=== PATIENT | female | born 1965 | race Two or more races ===

== ENCOUNTER 2024-01-20 13:45 | Emergency (ER) | payer MEDICARE, MEDICAID ==
[~2024-01-20] VITALS: Ht 162.6 cm; Wt 54.0 kg
[2024-01-20 13:56] VITALS: O2SAT 97
[2024-01-20] MEDS: PHENYTOIN SODIUM EXTENDED 100MG CAPSULE PO ONE (14:45)
[2024-01-20 14:47] VITALS: TEMP 97.9
[2024-01-20 15:07] LABS: BASOPHILS % 0.5 % (0.0-2.0); EOSINOPHILS % 0.4 % (0.0-5.0); HEMATOCRIT. 37.9 % (36.0-48.0); HEMOGLOBIN. 13.2 g/dL (12.0-16.0); LYMPHOCYTES % 29.6 % (20.0-50.0); MEAN CORPUSCULAR HEMOGLOBIN 32.8 pg (28.0-32.0); MEAN CORPUSCULAR HGB CONC 34.9 g/dL (31.0-37.0); MEAN CORPUSCULAR VOLUME 93.9 fL (81.0-99.0); MEAN PLATELET VOLUME 6.6 fl (7.4-10.4); MONOCYTES % 5.8 % (2.0-8.0); NEUTROPHILS % 63.7 % (40.0-76.0); PLATELET 275 x1000/uL (130-400); RED BLOOD CELL COUNT 4.03 mill/uL (4.2-5.4); RED CELL DISTRIBUTION WIDTH 12.6 % (11.6-14.6); WHITE BLOOD COUNT 4.7 x1000/uL (4.5-11.0)
[2024-01-20 15:14] LABS: PROTHROMBIN TIME 10.9 sec (9.6-11.0)
[2024-01-20] MEDS: ONDANSETRON HCL 4MG/2ML INJ IV STA (15:14)
[2024-01-20] MEDS: SODIUM CHLORIDE 0.9% 1,000 ML IV ONE (15:14)
[2024-01-20] MEDS: KETOROLAC 30MG/ML VIAL IV STA (15:14)
[2024-01-20 15:20] LABS: ALANINE AMINOTRANSFERASE 18 IU/L (10-49); ASPARTATE AMINOTRANSFERASE 25 IU/L (<34); BILIRUBIN TOTAL 0.3 mg/dL (0.1-1.0); CALCIUM 8.6 mg/dL (8.7-10.4); CARBON DIOXIDE 30 mEq/L (21-32); CHLORIDE 99 mEq/L (98-107); CREATININE 0.5 mg/dL (0.6-1.0); GLUCOSE 91 mg/dL (70-105); POTASSIUM 3.7 mEq/L (3.5-5.1); PROTEIN TOTAL 6.9 g/dL (6.0-8.3); SODIUM 134 mEq/L (136-145); TROPONIN I HIGH SENSITIVITY 5 ng/L (3.0-34); UREA NITROGEN BLOOD 5 mg/dL (9-23)
[2024-01-20 15:32] LABS: ETHANOL BLOOD < 10 mg/dL (<10)
[2024-01-20] MEDS ORDERED: LORAZEPAM 1MG TABLET PO ONE (18:45)
[2024-01-20 18:50] LABS: CLARITY URINE CLEAR (CLEAR); COLOR URINE YELLOW (YELLOW); GLUCOSE URINE NEGATIVE (NEGATIVE); KETONES URINE NEGATIVE (NEGATIVE); LEUKOCYTE ESTERASE URINE NEGATIVE (NEGATIVE); NITRITE URINE NEGATIVE (NEGATIVE); OCCULT BLOOD URINE NEGATIVE (NEGATIVE); PROTEIN URINE NEGATIVE (NEGATIVE); SPECIFIC GRAVITY URINE 1.004 (1.005-1.030); UROBILINOGEN URINE 0.2 E.U./dL (0.2-1.0)
[2024-01-20 19:11] LABS: *AMPHETAMINES SCREEN URINE NEGATIVE (NEGATIVE); *BARBITURATES SCREEN URINE NEGATIVE (NEGATIVE); *BENZODIAZEPINES SCREEN URINE NEGATIVE (NEGATIVE); *COCAINE SCREEN URINE NEGATIVE (NEGATIVE); CANNABINOID URINE SCREEN NEGATIVE (NEGATIVE); ECSTASY MDMA SCREEN URINE NEGATIVE (NEGATIVE); METHADONE URINE SCREEN Neg (NEGATIVE); OPIATES URINE SCREEN NEGATIVE (NEGATIVE); PHENCYCLIDINE URINE SCREEN NEGATIVE (NEGATIVE)
[2024-01-20] MEDS: CLONAZEPAM 1MG TABLET PO ONE (19:15)
[2024-01-20] MEDS: CYCLOBENZAPRINE 10MG TABLET PO ONE (19:28)
[2024-01-20 19:30] VITALS: BP 128/82; PULSE 81; RESP 22
== END 2024-01-20 19:30 | disposition home or self-care (01) ==
LOC: ER 13:45
DX: R10.30 Lower abdominal pain, unspecified (principal); Z86.59 Personal history of other mental and behavioral disorders
CPT/HCPCS: 80053; 80305; 81003; 80320; 83605; 83690; 85025; 85610; 86850; 86900; 86901; 84484; 36415; 71045; 74176; 93970; 93005; 96374; 96375; 99285; J1885; J2405; J7030; G0480

== ENCOUNTER 2024-02-02 15:17 | Emergency (ER) | payer MEDICARE, MEDICAID ==
[~2024-02-02] VITALS: Ht 162.6 cm; Wt 44.0 kg
[2024-02-02 15:19] VITALS: O2SAT 99
[2024-02-02] MEDS: ACETAMINOPHEN 325MG TABLET PO ONE (17:00)
[2024-02-02] MEDS: TETANUS, DIPHTHERIA, PERTUSSIS VAC/PF 0.5ML (>10YR OLD) IM ONE (18:15)
[2024-02-02 19:05] VITALS: BP 134/65; PULSE 93; RESP 16; TEMP 98.7
[2024-02-02] MEDS: LIDOCAINE HCL 1% 20ML VIAL (Pyxis) INJ INFIL ONE (19:14)
== END 2024-02-02 19:05 | disposition home or self-care (01) ==
LOC: ER 15:17
DX: R56.9 Unspecified convulsions (principal); F41.9 Anxiety disorder, unspecified; F20.9 Schizophrenia, unspecified
CPT/HCPCS: 99285; 70450; 72125; 90715; 90471; J3490

== ENCOUNTER → 2025-01-20 | Outpatient (CLI) | payer MEDICARE, MEDICAID ==
[~2025-01-20] MED LIST: GABA-1180 MT
== END | disposition home or self-care (01) ==
LOC: US 07:40
PROVIDERS: ATTEND Internal Medicine Critical Care Medicine
DX: K80.20 Calculus of gallbladder without cholecystitis without obstruction (principal)
CPT/HCPCS: 76705

== ENCOUNTER 2025-03-05 13:41 | Emergency (ER) | payer MEDICARE, MEDICAID ==
[~2025-03-05] VITALS: Ht 170.2 cm; Wt 56.0 kg
[2025-03-05 13:46] VITALS: O2SAT 98
[2025-03-05 14:16] LABS: BASOPHILS % 0.8 % (0.0-2.0); EOSINOPHILS % 1.1 % (0.0-5.0); HEMOGLOBIN. 13.5 g/dL (12.0-16.0); MEAN CORPUSCULAR HEMOGLOBIN 33.1 pg (28.0-32.0); MEAN CORPUSCULAR HGB CONC 35.6 g/dL (31.0-37.0); MEAN CORPUSCULAR VOLUME 92.9 fL (81.0-99.0); MEAN PLATELET VOLUME 6.9 fl (7.4-10.4); MONOCYTES % 8.3 % (2.0-8.0); NEUTROPHILS % 50.8 % (40.0-76.0); PLATELET 261 x1000/uL (130-400); RED BLOOD CELL COUNT 4.09 mill/uL (4.2-5.4); RED CELL DISTRIBUTION WIDTH 12.8 % (11.6-14.6); WHITE BLOOD COUNT 4.4 x1000/uL (4.5-11.0)
[2025-03-05 14:22] LABS: CHLORIDE 104 mEq/L (98-107); POTASSIUM 3.5 mEq/L (3.5-5.1); SODIUM 139 mEq/L (136-145)
[2025-03-05 14:23] LABS: CARBON DIOXIDE 32 mEq/L (21-32)
[2025-03-05 14:28] LABS: CREATININE 0.7 mg/dL (0.6-1.0); GLUCOSE 103 mg/dL (70-105)
[2025-03-05 14:29] LABS: UREA NITROGEN BLOOD < 5 mg/dL (9-23)
[2025-03-05 14:30] LABS: ALANINE AMINOTRANSFERASE 17 IU/L (10-49); ALBUMIN 4.1 g/dL (3.2-4.8); ASPARTATE AMINOTRANSFERASE 22 IU/L (<34); BILIRUBIN DIRECT < 0.1 mg/dL (<=3.0)
[2025-03-05 14:31] LABS: BILIRUBIN TOTAL 0.3 mg/dL (0.1-1.0); PROTEIN TOTAL 6.9 g/dL (6.0-8.3)
[2025-03-05 14:59] VITALS: BP 128/84; PULSE 79; RESP 19; TEMP 36.7; O2SAT 97
== END 2025-03-05 16:36 | disposition home or self-care (01) ==
LOC: ER 13:44
DX: G89.29 Other chronic pain (principal); K29.70 Gastritis, unspecified, without bleeding; F41.9 Anxiety disorder, unspecified; F20.9 Schizophrenia, unspecified; F31.9 Bipolar disorder, unspecified; Z79.899 Other long term (current) drug therapy; Z88.8 Allergy status to other drugs, medicaments and biological substances; Z91.041 Radiographic dye allergy status
CPT/HCPCS: 36415; 80048; 80076; 85025; 99283